=== PATIENT | male | born 1950 | race Caucasian/White ===

== ENCOUNTER 2019-10-18 14:31 | Emergency (ER) | payer MEDICARE ==
[~2019-10-18] VITALS: Ht 170.2 cm; Wt 68.1 kg
[2019-10-18 14:31] VITALS: BP 147/67
--- NOTE | 2019-10-18 14:54 | PHYS DOC ---
General Adult EDM: Chief Complaint: GTUBE REPLACEMENT/MALFUNCTION HPI: HPI: Patient is a 69 year old male presents via EMS from [facility] for PEG tube dysfunction. EMS reports PEG tube clogged. Patient unable to provide other information states they did not use the PEG tube today t hat he is aware of. Patient denies any abdominal pain or pain to the site. (RODNEY SANTIAGO APRN) Review of Systems: Review of Systems: Constitutional: Denies fever or chills. [] Eyes: Denies change in visual acuity. [] HENT: Denies nasal congestion or sore throat. [] Respiratory: Denies cough or shortness of breath. [] Cardiovascular: Denies chest pain or edema. [] GI: Denies abdominal pain, nausea, vomiting, bloody stools or diarrhea. [] : Denies dysuria. [] Musculoskeletal: Denies back pain or joint pain. [] Integument: Denies rash. [] Neurologic: Denies headache, focal weakness or sensory changes. [] Endocrine: Denies polyuria or polydipsia. [] Lymphatic: Denies swollen glands. [] Psychiatric: Denies depression or anxiety. [] (RODNEY SANTIAGO AIR LAUNCH WEAPONS TECHNICIAN) Heart Score: Risk Factors: Risk Factors: DM, Current or recent (<one month) smoker, HTN, HLP, family history of CAD, obesity. Risk Scores: Score 0 - 3: 2.5% MACE over next 6 weeks - Discharge Home Score 4 - 6: 20.3% MACE over next 6 weeks - Admit for Clinical Observation Score 7 - 10: 72.7% MACE over next 6 weeks - Early Invasive Strategies (RODNEY SANTIAGO [employer] TECHNICIAN) Physical Exam: PE: Constitutional: Well developed, well nourished, no acute distress, non-toxic appearance. [] HENT: Normocephalic, atraumatic, bilateral external ears normal, oropharynx moist, no oral exudates, nose normal. [] Eyes: PERRLA, EOMI, conjunctiva normal, no discharge. [] Neck: Normal range of motion, no tenderness, supple, no stridor. [] Cardiovascular:Heart rate regular rhythm, no murmur [] Lungs & Thorax: Bilateral breath sounds clear to auscultation [] Abdomen: Bowel sounds normal, soft, no tenderness, no masses, no pulsatile masses, PEG TUBE SITE CLEAN C MINIMAL ERYTHEMA TO EDGES [] Skin: Warm, dry, no erythema, no rash. [] Back: No tenderness, no CVA tenderness. [] Extremities: No tenderness, no cyanosis, no clubbing, ROM intact, no edema. [] Neurologic: Alert, normal motor function, normal sensory function, no focal deficits noted. [] Psychologic: Affect normal, mood normal. [] (RODNEY SANTIAGO APRN) EKG: EKG: [] (RODNEY SANTIAGO APRN) Radiology/Procedures: Radiology/Procedures: [] (RODNEY SANTIAGO APRN) Course & Med Decision Making: Course & Med Decision Making Pertinent Labs and Imaging studies reviewed. (See chart for details) [PEG tube port flushed with normal saline, able to draw back without resistance or difficulty, vss, patient stable for [facility] (RODNEY SANTIAGO APRN) Dragon Disclaimer: Dragon Disclaimer: This electronic medical record was generated, in whole or in part, using a voice recognition dictation system. (RODNEY SANTIAGO APRN) Departure Departure Impression: Primary Impression: PEG tube malfunction Disposition: HOME, SELF-CARE (back to [facility]) Condition: STABLE Patient Instructions: PEG, Home Care, [id number] Justicifation of Admission Dx: Justifications for Admission: Justification of Admission Dx: N/A (RODNEY SANTIAGO APRN) Attending Signature Attending Signature I have reviewed the PA/ROAD GRADER OPERATOR's note and plan of care. I was available for consultation as needed during the patient's visit in the emergency department. I agree with the clinical impression, plan, and disposition. (JUANJO PEÑA DO) RODNEY SANTIAGO APRN Oct 18, 2019 14:54 JUANJO PEÑA DO Oct 18, 2019 18:47
== END 2019-10-18 16:32 | disposition home or self-care (01) ==
LOC: ER 14:31
DX: K94.23 Gastrostomy malfunction (principal)
CPT/HCPCS: 99284